=== PATIENT | female | born 1975 | race Caucasian/White ===

== ENCOUNTER 2022-06-07 11:00 | Outpatient (CLI) | payer OTHER, SELFPAY ==
[2022-06-07 19:19] LABS: Cholesterol 186 mg/dL (0-200); HDL Direct 57 mg/dL; Triglycerides 68 mg/dL (<150)
[2022-06-07 19:30] LABS: LDL Cholesterol Direct 81 mg/dL
[2022-06-07 21:45] LABS: Vitamin D 25 Hydroxy > 126.0 ng/mL
== END 2022-06-07 11:01 | disposition home or self-care (01) ==
LOC: ANHGOSHLAB 11:01
PROVIDERS: PCP Nurse Practitioner Family; Visit Provider Nurse Practitioner Family
DX: E78.5 Hyperlipidemia, unspecified (principal); E55.9 Vitamin D deficiency, unspecified
CPT/HCPCS: 36415; 80061; 82306

== ENCOUNTER 2023-06-09 08:34 | Outpatient (CLI) | payer OTHER, SELFPAY ==
[2023-06-09 18:25] LABS: Cholesterol 195 mg/dL (0-200); HDL Direct 58 mg/dL; Triglycerides 80 mg/dL (<150)
[2023-06-09 18:35] LABS: LDL Cholesterol Direct 96 mg/dL
[2023-06-13 13:52] LABS: Vitamin D 1,25 (OH)2 Total 51 pg/mL (18-72); Vitamin D2 1,25 (OH)2 <8 pg/mL; Vitamin D3 1,25 (OH)2 51 pg/mL
== END 2023-06-09 08:35 | disposition home or self-care (01) ==
LOC: ANHGOSHLAB 08:35
PROVIDERS: PCP Family Medicine; Visit Provider Nurse Practitioner Family
DX: Z00.00 Encounter for general adult medical examination without abnormal findings (principal); Z12.11 Encounter for screening for malignant neoplasm of colon; Z12.12 Encounter for screening for malignant neoplasm of rectum; E78.5 Hyperlipidemia, unspecified; E55.9 Vitamin D deficiency, unspecified
CPT/HCPCS: 36415; 80061; 82652; 84443

== ENCOUNTER 2024-06-07 11:06 | Outpatient (CLI) | payer OTHER, SELFPAY ==
[2024-06-07 19:56] LABS: Hemoglobin A1C 5.1 % (<5.7)
[2024-06-07 21:28] LABS: Cholesterol 187 mg/dL (0-200); HDL Direct 69 mg/dL; Triglycerides 69 mg/dL (<150)
[2024-06-07 21:43] LABS: LDL Cholesterol Direct 83 mg/dL
[2024-06-12 13:29] LABS: Vitamin D 1,25 (OH)2 Total 68 pg/mL (18-72); Vitamin D2 1,25 (OH)2 <8 pg/mL; Vitamin D3 1,25 (OH)2 68 pg/mL
== END 2024-06-07 11:07 | disposition home or self-care (01) ==
LOC: ANHGOSHLAB 11:07
PROVIDERS: PCP Family Medicine; Visit Provider Nurse Practitioner Family
DX: Z00.00 Encounter for general adult medical examination without abnormal findings (principal); D68.51 Activated protein C resistance; E55.9 Vitamin D deficiency, unspecified; E78.5 Hyperlipidemia, unspecified; F41.8 Other specified anxiety disorders; R73.03 Prediabetes
CPT/HCPCS: 36415; 80061; 82607; 82652; 83036

== ENCOUNTER 2024-08-31 07:42 | Outpatient (CLI) | payer OTHER, SELFPAY ==
--- NOTE | ~2024-08-31 | MM_ITS ---
EXAMINATION: MM screening jhon BI w pipo HISTORY: Screening TECHNIQUE: Craniocaudal and mediolateral oblique 3-D tomosynthesis images were obtained and synthetic 2-D images were generated. CAD analysis was submitted and interpreted. COMPARISON: 05/23/2019 BREAST PARENCHYMAL COMPOSITION: Dense: The breasts are heterogeneously dense, which may obscure small masses FINDINGS: There are developing bilateral breast asymmetries largely centered in the upper outer quadr ants. There are no suspicious calcifications. No definite architectural distortion. IMPRESSION: 1. Developing bilateral breast asymmetries. 2. Additional mammographic views and possible breast ultrasound are recommended. BI-RADS Category 0: Incomplete: Needs additional imaging evaluation. Reviewed, dictated and finalized at location B. OR SALES ENGINEER IMPRESSION: 1. Developing bilateral breast asymmetries. 2. Additional mammographic views and possible breast ultrasound are recommended . BI-RADS Category 0: Incomplete: Needs additional imaging evaluation.
== END 2024-08-31 07:43 | disposition home or self-care (01) ==
PROVIDERS: PCP Family Medicine; Visit Provider Obstetrics & Gynecology
DX: Z12.31 Encounter for screening mammogram for malignant neoplasm of breast (principal); N64.89 Other specified disorders of breast
CPT/HCPCS: 77063; 77067

== ENCOUNTER 2025-06-10 08:32 | Outpatient (CLI) | payer OTHER, SELFPAY ==
--- OUTSIDE RECORDS SUMMARY | 2025-06-10 08:48 | XMS_ITS | Clinical Summary ---
Author Organization [facility] [address] [facility] [place] [address] Care Team Providers Care Mercantile Reporter Name Role Phone Amberly Blank MD Unavailable [phone] Unknown, Notinfile Primary Care Provider Unavail able Allergies Active Allergy Reactions Criticality Noted Date Comments Codeine Metronidazole Rash Medium 11/09/2007 Propoxyphene Fatigue Low 01/24/2017 Propoxyphene N-Acetaminophen Rash Medium 015 Tetracyclines Itching Low 03/21/2023 Medications loratadine-pseud oephedrine (CLARITIN-D 12-hour) 5-120 mg tablet extended release 12 hr Take 1 tablet by mouth 2 (two) times a day 03/06/2015 Active docosahexaenoic acid-epa 120-180 mg capsule Take by mouth Active VITAMIN B COMPLEX ORAL Take by mouth Active ergocalciferol, vitamin D2, (VITAMIN D2 ORAL) Take by mouth Active ascorbic acid (VITAMIN C ORAL) Take 1,000 mg by mouth daily Active rivaroxaban (XARELTO) 20 mg tablet Take 1 tablet (20 mg total) by mouth daily 05/13/2024 Active sertraline (ZOLOFT) 50 mg tablet 1 tablet (50 mg total) 10/01/2024 Active semaglutide 1.7 mg/0.22 mL syringe Inject under the skin Active Hospital, Clinic, or Other Facility Administered Medication Ordered Dose Route Frequency Start Date End Date Status levonorgestreL (MIRENA) 20 mcg/24 hours (7 yrs) 52 mg IUDIndications:Preg jelani Contraception intrauterine Continuous (implanted device) 11/10/2021 7 Active Active Problems Problem Noted Date Diagnosed Date Endometriosis 08/03/2024 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 contractions 02/20/2015 Twin in third trimester 02/20/2015 Interstitial cystitis 12/21/2012 Encounters Date Type Department Care Team Description 04/24/2025 8:00 AM CDT Office Visit [facility] at [address] [address] Tia Holloway NP Irritation of left eye (Primary Dx); Body aches from Last 3 Months Surgical History Surgery Date Site/Laterality Comments SECTION, LOW TRANSVERSE 10/30/2014 - 10/29/2015 twins son Gregorio dtr Cande PELVIC LAPAROSCOPY 10/30/2003 - 10/29/2004 excision endometriosis/endometri chase WISDOM TOOTH EXTRACTION GYNECOLOGIC CRYOSURGERY 10/30/2003 - 10/29/2004 cervical cryo in 2003 Medical History Medical History Date Comments Factor V Leiden mutation Positiv e Factor V Leiden mutation 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) in addition to Factor V muta tion and prothrombin promoter mutation Prothrombin [id number] mutation Interstitial cystitis Depression Anticoagulated on Coumadin Anxiety Endometriosis Irritable bowel syndrome Family History Medical History Relation Name Comments Deep vein thrombosis Mother spinal cord tumor rare, no genetic component; '13 from this cancer Mother Thrombosis Mother's Sister from thrombosis Cancer Other 1 Reported Family History Of Cancer - mother,grandpa grandma (Added by TW Conv) Thyroid disease Other 2 Thyroid Diso rder - great grandma (Added by TW Conv) Obesity Other 3 Obesity - mothe rs sister (Added by TW Conv) Heart disease Other 4 Heart Disease - grandfather (Added by TW Conv) Breast cancer Neg Hx Colon cancer Neg Hx Ovarian cancer Neg Hx Relation Name Status Comments Mother Mother's Sister Other 1 Other 2 Other 3 Other 4 Social History Tobacco Use Types Packs/Day Years Used Date Smoking Tobacco: Never Passive Smoke Exposure: Never Smokeless Tobacco: Never Tobacco Cessation:Counseling Given: Not Answered Comments No Sex and Gender Information Value Date Recorded Sex Assigned at Not on file Legal Sex Female 6:48 AM POLICY DIRECTOR Gender Identity Not on file Sexual Orientation Not on file Obstetrics History Para Term AB IAB SAB Ectopic Multiple Livin g Live Births 1 1 1 1 2 2 Date Outcome GA Total Labor Labor/2nd/3rd Weight Sex Type Anes PTL Purvi A1 A5 Name Clin 015 34w 2d 1.701 kg (3 lb 12 oz) M CS-LT ranv Living Comments:Son Gregorio Tw in A 015 34w 2d 2.013 kg (4 lb 7 oz) F CS-LT ranv Living Comments:Dtr Cande Tw in B Last Filed Vital Signs Vital Sign Reading Time Taken Comments Blood Pressure 118/74 04/24/2025 8:03 AM CDT Pulse 87 04/24/2025 8:03 AM CDT Temperature 36.6 C (97.8 F) 04/24/2025 8:03 AM CDT Respiratory Rate 16 04/24/2025 8:03 AM CDT Oxygen Saturation 98% 04/24/2025 8:03 AM CDT Inhaled Oxygen Concentration - - Weight 59 kg (130 lb) 04/24/2025 8:03 AM CDT Height 152.4 cm (5') 12/23/2024 9:05 AM POLICY DIRECTOR Body Mass Index 25.39 12/23/2024 9:05 AM POLICY DIRECTOR Plan of Treatment Health Maintenance Due Date Last Done Comments Breast Cancer Screening-Mammogram 1977 Colon Cancer Screening-Colonoscopy 1977 Depression Screening 1977 Hepatitis C Screening 1977 Hepatitis B Screening 1995 Covid-19 Vaccine (2023- season) 2024 12/30/2020, 12/02/2020 DTaP/Tdap/Td Vaccine (3 - Td or Tdap) 02/28/2025 02/28/2015, 11/03/2010 Influenza Vaccine (#1) 2025 , 08/23/2020, 08/22/2020, Additional history exists Cervical Cancer Screening 12/23/20252024, 12/20/2023, 12/16/2022, Additional history exists Regular Well Visit/Exam 18-64 12/23/2025 12/23/2024, 12/20/2023, 12/16/2022, Additional history exists Pneumococcal vaccine <65 Aged Out No longer eligible based on patient's age to complete this topic Procedures Procedure Name Priority Date/Time Associated Diagnosis Comments THINPREP IMAGING PAP AND HPV MRNA E6/E7 REFLEX HPV 16,18/45 Routine 12/23/2024 9:54 AM POLICY DIRECTOR Routine gynecological examination from Last 3 Months or Most Recently Relevant to Health Maintenance Results * ThinPrep(R) Imaging Pap and HPV mRNA E6/E7 Reflex HPV 16,18/45 (12/23/2024 9:54 AM POLICY DIRECTOR) CLINICAL INFORMATION: [facility] Comment:None given LMP [facility] Comment:NONE GIVEN Previous Pap [facility] Comment:NONE GIVEN Prev. Bx [facility] Comment:NONE GIVEN SOURCE: [facility] Comment:None given Pap, specimen adequacy [facility] Comment: Satisfactory for evaluation. Endocervical/transformation zone component present. Age and/or menstrual status not provided HPV interp [facility] Comment: Cytology Results: Negative for intraepithelial lesion or malignancy. COMMENTS [facility] Comment: This Pap test has been evaluated with computer assisted technology. Donor Floor Technician [facility] Comment: MEF, CT(ASCP) CT screening location: [place] [address] [place] [address] Comment [facility] Comment: EXPLANATORY NOTE: The Pap is a screening test for cervical cancer. It is not a diagnostic test and is subject to false negative and false positive results. It is most reliable when a satisfactory sample, regularly obtained, is submitted with relevant clinical findings and history, and when the Pap result is evaluated along with historic and current clinical information. Human papillomavirus RNA, High Risk E6/E7 Not Detected Not Detected [facility] [employer] Comment: Methodology: Ethnology Teacher-Mediated Amplification This assay detects E6/E7 viral messenger RNA (mRNA) from 14 high-risk HPV types (16,18,31,33,35,39,45,51,52,56,58,59,66,68). Cervical sources are required for HPV testing. If a vaginal source from a patient who has had a total hysterectomy with removal of cervix was submitted, please contact the testing laboratory for alternative testing options. For additional information, please refer to http://education.Vixlo/faq/HSE989p8 (This link if provided for information/ educational purposes only.) Swab 12/23/2024 9:54 AM POLICY DIRECTOR 12/23/2024 11:23 PM POLICY DIRECTOR us Nakita Ambrocio DO LAB CYTOLOGY ORDERABLES Final Result Performing Organization Address City/State/[facility] Co de Phone Number [facility] [address] [place] [address] [facility] [address] [place] [address] from Last 3 Months or Most Recently Relevant to Health Maintenance Insurance [facility] Address: [place] [address] [facility] CHOICE PLUS [facility] H[facility]/PPO Address: [address] [place] [address] [facility]/PPO Address: [address] [place] [address] [facility] [address] CHOICE PLUS [facility] H[facility]/PPO Address: [address] [place] [address] Care Teams Mercantile Reporter Relationship Specialty Start Date End Date Unknown, Notinfile PCP - General 04/24/25 [place] [address] [place] [address] Employment Attorney Obstetrics and Gynecology 09/17/21
--- OUTSIDE RECORDS SUMMARY | 2025-06-10 08:48 | XMS_ITS | Encounter Summary ---
Author Organization [facility] Address [address] Wong: [place] [address] Care Team Providers Care Syrup Maker Cook Name Role Phone Ryan Singh MD Primary Care Provider Encounter Details Date Type Department Care Team (Latest Contact Info) Description 05/03/2007 Orders Only Saurabh Epstein DO [facility] [address] [address] Social History Tobacco Use Types Packs/Day Years Used Date Smoking Tobacco: Never Assessed Comments Unknown Sex and Gender Information Value Date Recorded Sex Assigned at Not on file Legal Sex Female 5:02 AM HAND SOLE SEWER Gender Identity Not on file Sexual Orientation Not on file documented as of this encounter Progress Notes * Saurabh Epstein DO - 03/19/2008 8:59 AM CDT NURSE NAME: Chanell Yanes L BLOOD PRESSURE: 110/62. Left Arm Sitting PULSE: 76. Right Radial, Regular TEMPERATURE: 99.2??f. Oral WEIGHT: 106lbs. ALLERGIES: No known drug allergies. TOBACCO USE: Patient does not currently use tobacco. CHIEF COMPLAINT Patient complains of cough, head congestion, chest congestion, earaches, runny nose. /mercy/est HISTORY: Last mon began with cough, progressed to chest tightness. Taking tylenol cold, didn't really seem to help. [place] better over the weekend. Monday started with cough again. Cheeks hurt, left ear hurts, tightness in the chest. + exposure to whooping cough last week, and this person just came back to work yesterday. Low grade temp today. Dry cough. Tired all the time since this started. ROS: GENERAL: No change in appetite, no chills, FEELS FATIGUED, no spontaneous sweats noted. ENT: See HISTORY OF PRESENT ILLNESS. CARDIAC: No palpitations, no chest pain. RESPIRATORY: See HISTORY OF PRESENT ILLNESS, no hemoptysis, no sputum noted. PAST MEDICAL HISTORY: MEDICAL: Allergies, interstitial cystitis, endometriosis. Sees Dr. Pfeiffer ENVIRONMENTAL ENGINEERING PROFESSOR. SURGICAL: 2 surgeries for endometriosis, 1 for cystitis. CURRENT MEDICATIONS: harley and zyrtec. SOCIAL HISTORY: TOBACCO USE: Has no significant smoking history. PHYSICAL EXAMINATION: CONSTITUTIONAL: GENERAL APPEARANCE: Healthy appearing patient in no distress. EYES: CONJUNCTIVAE/LIDS: Conjunctivae and lids appear normal. EARS, NOSE, MOUTH AND THROAT: EXTERNAL/EARS AND NOSE: Overall appearance normal with no scars, lesions or masses. EARS: No tympanic membrane retraction noted in either ear. NOSE (AND SINUS): TURBINATES RED BILATERALLY, TURBINATES SWOLLEN BILATERALLY. ORAL: Inspection of gums, lips, palate, and teeth normal. No scars, lesions, or masses. Oral mucosaunremarkable with non-inflamed posterior pharynx. NECK/THYROID: Trachea midline. No thyroid enlargement, tenderness, or mass. No supraclavicular or cervical adenopathy. RESPIRATORY: Clear to auscultation and percussion. Normal respiratory effort. CARDIOVASCULAR: CARDIAC: Regular rhythm. No murmurs, rubs, or gallops. ARTERIAL: No aortic bruits. ASSESSMENT/PLAN: 465.9-UPPER RESPIRATORY INFECTION ASSESSMENT: Because of symptomatic exposure to pertussis, will treat with a z- pack. Instructed thatcough can last six weeks after symptoms go away if this is indeed pertussis. Otherwise, symptomatictreatment as below. MEDICATIONS: ZITHROMAX ORAL TABLET 250 MG, take 2 today, then 1 q day x 4 more days, 6 Dispensed, status: NEW PRESCRIPTION, 05/03/2007. 786.2-COUGH ASSESSMENT: Tessalon during day, narcotic cough syrup during night. Instructed on proper use, pt understands. MEDICATIONS: HYDROCODONE-GUAIFENESIN ORAL LIQUID 5-100 MG/5ML, take 1 tsp q 4-6h prn cough Disp 120cc, 1 Dispensed, status: NEW PRESCRIPTION, 05/03/2007. TESSALON ORAL CAPSULE CONVENTIONAL 200 MG, 1 Three Times A Day, As Needed, 30 Dispensed, 1 Fills, status: NEW PRESCRIPTION, 05/03/2007. 477.9-RHINITIS ALLERGIC UNSPECIFIED ASSESSMENT: Does have hx of allergies, which could be contributing, will refill flonase and zyrtec for her. MEDICATIONS: FLONASE NASAL SUSPENSION 50 MCG/ACT, 2 SPRAYS EACH NOSTIL QD, 1 Dispensed, 3 Fills, status: NEW PRESCRIPTION, 05/03/2007. ZYRTEC ORAL TABLET 10 MG, 1 Every Day, 30 Dispensed, 5 Fills, status: NEW PRESCRIPTION, 05/03/2007. RETURN VISIT: Patient instructed to call in 1 week if not improving. otherwise soon for HMV. 05/06/07 12:18 p Electronically signed by Saurabh Epstein DO. Electronically Signed by: Santino Jain MD on April documented in this encounter Plan of Treatment Upcoming Encounters Date Type Department Care Team (Late st Contact Info) Description 11/19/2025 8:15 AM HAND SOLE SEWER Office Visit [facility] Oncology and Hematology [facility] [address] [place] [address] Pao Hartley MD [address] [place] [address] documented as of this encounter Visit Diagnoses Not on filedocumented in this encounter Care Teams Syrup Maker Cook Relationship Specialty Start Date End Date Ryan Singh MD [address] [place] [address] PCP - General Family Practice 04/26/22 documented as of this encounter
--- OUTSIDE RECORDS SUMMARY | 2025-06-10 08:48 | XMS_ITS | Encounter Summary ---
Author Organization [facility] Address [address] [place] [address] Care Team Providers Care Implementation Services Analyst Name Role Phone Ryan Singh MD Primary Care Provider Encounter Details Date Type Department Care Team (Late st Contact Info) Description 11/08/2007 Orders Only [facility] Family Medicine [facility] [address] [place] [address] Jacquelyn Wallis MD [address] [place] [address] Social History Tobacco Use Types Packs/Day Years Used Date Smoking Tobacco: Never Assessed Comments Unknown Sex and Gender Information Value Date Recorded Sex Assigned at Not on file Legal Sex Female 5:02 AM TESTER EQUIPMENT Gender Identity Not on file Sexual Orientation Not on file documented as of this encounter Progress Notes * Jacquelyn Wallis MD - 03/12/2008 5:41 PM CDT NURSE NAME: Thelma KristinaWayne WEIGHT: 102lbs. BLOOD PRESSURE: 120/84. Right Arm Sitting PULSE: 104. Right Radial, Regular TEMPERATURE: 99.2??f. Oral ALLERGIES: Allergies are as listed. TOBACCO USE: Patient does not currently use tobacco. CHIEF COMPLAINT Patient complains of painful urination, frequent urination.bloodiness and back pain.est.[facility] HISTORY: 32 yo wf here for possible uti - increased frequency, dark urine, dysuria, difficulty starting flow. Now with suprapubic pressure and back pain. Taking urastat and flagyl, and elmiron. Now with with rash starting this am. + nausea. No vaginal discharge. No bm changes. Normal appetite. Only other med - harley. SH: Nonsmoker PMH: interstitial cystitis - treated by urologist in tx. anxiety. allergic rhinitis CURRENT ALLERGY LIST: CODEINE DARVOCET-N 100 FLAGYL PHYSICAL EXAMINATION: CONSTITUTIONAL: GENERAL APPEARANCE: Healthy appearing patient in no distress. EYES: CONJUNCTIVAE/LIDS: Conjunctivae and lids appear normal. RESPIRATORY: Clear to auscultation and percussion. Normal respiratory effort. CARDIOVASCULAR: CARDIAC: Regular rhythm. No murmurs, rubs, or gallops. GASTROINTESTINAL: ABDOMEN: No suprapubic tenderness, normal bowel sounds, no rigidity is present, No CVA tenderness. SKIN: RASH/LESION #1 LOCATION: Left anterior forearm, right forearm. CHARACTERISTICS: The lesion is erythematous. The rash is maculopapular. The lesion border is asymmetrical. The lesion surface is flat. There are multiple lesions. ASSESSMENT/PLAN: 599.0-URINARY TRACT INFECTION - Will not do ua as patient has taken urostat. Will treat with septraand send urine for culture. No cva tenderness. no fever. MEDICATIONS: SEPTRA DS ORAL TABLET 800-160 MG, one tab po bid X 3 days, 6 Dispensed, 3 Duration/Days Supply, status: NEW PRESCRIPTION, 11/08/2007. LAB ORDERS: Order number: [id number] Test Ordered: CULTURE, URINE 8970 782.1-RASH - contact dermatitis vs drug reaction. Given the timing with starting the flagyl, will note flagyl on allergy list. HAve advised patient to tell other physicians that she had a possible rash to flagyl. RETURN VISIT: call if no improvement in 2 days or if symptoms worsen. 11/09/07 01:24 p Electronically signed by Jacquelyn Wallis MD. Electronically Signed by: Khushboo Newberry MD on , November 29, 2007 documented in this encounter Plan of Treatment Upcoming Encounters Date Type Department Care Team (Late st Contact Info) Description 11/19/2025 8:15 AM TESTER EQUIPMENT [facility] [address] [place] [address] Pao Hartley MD [address] [place] [address] documented as of this encounter Visit Diagnoses Not on filedocumented in this encounter Care Teams Implementation Services Analyst Relationship Specialty Start Date End Date Ryan Singh MD [address] [place] [address] PCP - General Family Practice 04/26/22 documented as of this encounter
--- OUTSIDE RECORDS SUMMARY | 2025-06-10 08:48 | XMS_ITS | Encounter Summary ---
Author Organization [facility] Address [address] Attn: Epic Prelude ADT [place] [address] Care Team Providers Care Machine Adjuster Leader Case Trim Name Role Phone Ryan Singh MD Primary Care Provider Encounter Details Date Type Department Care Team (Latest Contact Info) Description 06/28/2007 Orders Only Social History Tobacco Use Types Packs/Day Years Used Date Smoking Tobacco: Never Assessed Comments Unknown Sex and Gender Information Value Date Recorded Sex Assigned at Not on file Legal Sex Female 5:02 AM SOLID TIRE FINISHER Gender Identity Not on file Sexual Orientation Not on file documented as of this encounter Plan of Treatment Upcoming Encounters Date Type Department Care Team (Late st Contact Info) Description 11/19/2025 8:15 AM SOLID TIRE FINISHER Office Visit [facility] Oncology and Hematology [facility] [address] [place] [address] Pao Hartley MD [address] [place] [address] documented as of this encounter Visit Diagnoses Not on filedocumented in this encounter Care Teams Machine Adjuster Leader Case Trim Relationship Specialty Start Date End Date Ryan Singh MD [address] [place] [address] PCP - General Family Practice 04/26/22 documented as of this encounter
--- OUTSIDE RECORDS SUMMARY | 2025-06-10 08:48 | XMS_ITS | Encounter Summary ---
Author Organization [facility] Address [address] [place] [address] Care Team Providers Care Donor Recruiter Name Role Phone Ryan Singh MD Primary Care Provider Encounter Details Date Type Department Care Team (Late st Contact Info) Description 11/08/2007 Outpatient Historical [facility] Family Medicine [facility] [address] [address] Jacquelyn Wallis MD [address] [place] [address] Social History Tobacco Use Types Packs/Day Years Used Date Smoking Tobacco: Never Assessed Comments Unknown Sex and Gender Information Value Date Recorded Sex Assigned at Not on file Legal Sex Female 5:02 AM ACCOUNT MANAGEMENT ASSISTANT Gender Identity Not on file Sexual Orientation Not on file documented as of this encounter Last Filed Vital Signs Vital Sign Reading Time Taken Comments Blood Pressure 120/84 11/08/2007 2:15 PM ACCOUNT MANAGEMENT ASSISTANT Pulse 104 11/08/2007 2:15 PM ACCOUNT MANAGEMENT ASSISTANT Temperature 37.3 C (99.2 F) 11/08/2007 2:15 PM ACCOUNT MANAGEMENT ASSISTANT Respiratory Rate - - Oxygen Saturation - - Inhaled Oxygen Concentration - - Weight 46.3 kg (102 lb) 11/08/2007 2:15 PM ACCOUNT MANAGEMENT ASSISTANT Height - - Body Mass Index - - documented in this encounter Plan of Treatment Upcoming Encounters Date Type Department Care Team (Late st Contact Info) Description 11/19/2025 8:15 AM ACCOUNT MANAGEMENT ASSISTANT Office Visit [facility] Oncology and Hematology [facility] [address] [place] [address] Pao Hartley MD [address] [place] [address] documented as of this encounter Visit Diagnoses Not on filedocumented in this encounter Care Teams Donor Recruiter Relationship Specialty Start Date End Date Ryan Singh MD [address] [place] [address] PCP - General Family Practice 04/26/22 documented as of this encounter
--- OUTSIDE RECORDS SUMMARY | 2025-06-10 08:48 | XMS_ITS | Encounter Summary ---
Author Organization [facility] Address [address] [place] [address] Care Team Providers Care Dealer Sales Rep Name Role Phone Ryan Singh MD Primary Care Provider Encounter Details Date Type Department Care Team (Late Contact Info) Description 06/28/2007 Outpatient Historical [facility] Family Medicine [address] [facility] [address] [place] [address] [place] [address] [place] [address] Social History Tobacco Use Types Packs/Day Years Used Date Smoking Tobacco: Never Assessed Comments Unknown Sex and Gender Information Value Date Recorded Sex Assigned at Not on file Legal Sex Female 5:02 AM LEAD SOFTWARE TEST ENGINEER Gender Identity Not on file Sexual Orientation Not on file documented as of this encounter Last Filed Vital Signs Vital Sign Reading Time Taken Comments Blood Pressure 108/60 06/28/2007 11:30 AM CDT Pulse 72 06/28/2007 11:30 AM CDT Temperature - - Respiratory Rate - - Oxygen Saturation - - Inhaled Oxygen Concentration - - Weight 46.3 kg (102 lb) 06/28/2007 11:30 AM CDT Height - - Body Mass Index - - documented in this encounter Plan of Treatment Upcoming Encounters Date Type Department Care Team (Late st Contact Info) Description 11/19/2025 8:15 AM LEAD SOFTWARE TEST ENGINEER Office Visit [facility] Oncology and Hematology [facility] [place] [address] [facility] [address] [place] [address] Pao Hartley MD [address] [place] [address] documented as of this encounter Visit Diagnoses Not on filedocumented in this encounter Care Teams Dealer Sales Rep Relationship Specialty Start Date End Date Ryan Singh MD [address] [place] [address] PCP - General Family Practice 04/26/22 documented as of this encounter
--- OUTSIDE RECORDS SUMMARY | 2025-06-10 08:48 | XMS_ITS | Encounter Summary ---
Author Organization [facility] Address [address] [place] [address] Care Team Providers Care Medical Art Therapist Name Role Phone Ryan Singh MD Primary Care Provider Encounter Details Date Type Department Care Team (Latest Contact Info) Description 06/28/2007 Outpatient Historical [facility] Family Medicine [facility] [address] [facility] [address] [place] [address] [place] [address] [place] [address] Herpes Zoster without Mention of Complication (Primary Dx) Social History Tobacco Use Types Packs/Day Years Used Date Smoking Tobacco: Never Assessed Comments Unknown Sex and Gender Information Value Date Recorded Sex Assigned at Not on file Legal Sex Female 5:02 AM DTP OPERATOR Gender Identity Not on file Sexual Orientation Not on file documented as of this encounter Plan of Treatment Upcoming Encounters Date Type Department Care Team (Late st Contact Info) Description 11/19/2025 8:15 AM DTP OPERATOR Office Visit [facility] Oncology and Hematology [facility] [address] [facility] [address] [place] [address] Pao Hartley MD [address] [facility] [address] [place] [address] documented as of this encounter Procedures Procedure Name Priority Date/Time Associated Diagnosis Comments HIV DETECTION W/REFLX CONFIRMATION Routine 06/28/2007 12:37 PM CDT documented in this encounter Results * HIV ANTIBODY W/REFLX CONFIRMATION (06/28/2007 12:37 PM CDT) HIV-1 AND 2 ABS NON-REACTI VE NON-REACT ALONSO INTERFACE SYSTEM Comment: Effective April 02, 2007, HIV 1/2 Antibody Screen with Reflexed Confirmati on has replaced HIV-1 Antibody Screen. HIV-1 Antibody Screen is no longer offered due to lack of available kits from the hand coper. A NON-REACTIVE HIV 1/2 ANTIBODY RESULT DOES NOT EXCLUDE HIV INFECTION SINCE THE TIME FRAME FOR SEROCONVERSION IS VARIABLE. IF ACUTE HIV INFECTION IS SUSPECTED, ANTIBODY RETESTING AND NUCLEIC ACID AMPLIFICATION (HIV DNA/RNA) TESTING IS RECOMMENDED. Lab test performed by: [facility] [id number] [place] [address] FOUZIA HARRIS MD 06/28/2007 12:3 7 PM CDT us Cecelia Hardwick MD CHEMISTRY ORDERABLES Edite d INTERFACE SYSTEM Refer to clinic/hospital department documented in this encounter Visit Diagnoses Diagnosis Herpes zoster without mention of complication- Primary documented in this encounter Care Teams Medical Art Therapist Relationship Specialty Start Date End Date Ryan Singh MD [address] [place] [phone] PCP - General Family Practice 04/26/22 documented as of this encounter
--- OUTSIDE RECORDS SUMMARY | 2025-06-10 08:48 | XMS_ITS | Clinical Summary ---
Author Organization [facility] Address [address] [place] [address] Care Team Providers Care Inventory Associate And Driver Name Role Phone Florentin Campos MD Primary Care Provider [phone] Source Comments [facility],non-owned Affiliates and Associated Physician Practices is amultiple site organization consisting of ambulatory clinics and hospital sitesin [place], [place], [place] and [place]. This disclosure is being madepursuant to the Care Everywhere program and may not contain all information available regarding this patient. Last updated 18.[facility] Allergies Active Allergy Reactions Criticality Noted Date Comments Codeine 01/24/2017 Propoxyphene N-Apap 01/24/2017 Metronidazole Rash Medium 01/24/2017 Medications * Be aware that medications may not be up to date on this document. Alwaysverify current medications with the patient. WARFARIN SODIUM PO Take 9 mg by mouth Active Loratadine-Pseu doephedrine (CLARITIN-D 12 HOUR PO) Active Sertraline HCl (ZOLOFT PO) Active Taylor-3 Fatty Acids (FISH OIL) 1000 MG capsule Active VITAMIN D, CHOLECALCIFEROL , PO Active B Complex Vitamins (VITAMIN B COMPLEX PO) Active levonorgestrel (MIRENA, 52 MG,) 20 MCG/24HR IUD 1 device by Intrauterine route as directed Active Family History Medical History Relation Name Comments Other Father Motor vehicle a ccident Cancer - Other Mother Spinal, Brain Relation Name Status Comments Father Mother Social History Tobacco Use Types Packs/Day Years Used Date Smoking Tobacco: Never Smokeless Tobacco: Never Tobacco Cessation:Counseling Given: Yes Comments No Sex and Gender Information Value Date Recorded Sex Assigned at Not on file Legal Sex Female 3:26 PM CDT Gender Identity Not on file Sexual Orientation Not on file Last Filed Vital Signs Vital Sign Reading Time Taken Comments Blood Pressure 116/70 04/14/2021 9:11 AM CDT Pulse 83 04/14/2021 9:11 AM CDT Temperature 36.8 C (98.3 F) 04/14/2021 9:11 AM CDT Respiratory Rate 18 04/14/2021 9:11 AM CDT Oxygen Saturation 98% 04/14/2021 9:11 AM CDT Inhaled Oxygen Concentration - - Weight 54.4 kg (120 lb) 09/04/2019 12:[address] SCAN TECH Height 152.4 cm (5') 09/04/2019 12:[address] SCAN TECH Body Mass Index 23.44 09/04/2019 12:[address] SCAN TECH Plan of Treatment Health Maintenance Due Date Last Done Comments COLOGUARD (AGES 45-75) - COLON CA SCREENING 1977 COLON MONITORING 1977 COLONOSCOPY - COLON CA SCREENING 1977 CT COLONOGRAPHY - COLON CA SCREENING 1977 Colorectal Cancer Screening 1977 FIT - COLON CA SCREENING 1977 FLEX SIG - COLON CA SCREENING 1977 LIPID TESTING 1977 MAMMOGRAM 1977 HIV SCREENING 1992 HEPATITIS C SCREENING 09/14/1995 DTAP/TDAP/TD VACCINES (1 - Tdap) 1996 HEPATITIS B VACCINE (1 of 3 - 19+ 3-dose series) 1996 COVID-19 VACCINE ( - 2023- season) 2024 12/30/2020, 12/02/2020 DEPRESSION SCREENING 10/30/2024 INFLUENZA VACCINE (#1) 2025 , 08/22/2020, 07/11/2018, Additional history exists ZOSTER VACCINE (1 of 2) 2027 HIB VACCINE Aged Out No longer eligi ble based on patient's age to complete this topic HPV VACCINE Aged Out No longer eligi ble based on patient's age to complete this topic MENINGOCOCCAL (Group B) VACCINE SHARED DECISION-MAKING Aged Out No longer eligible based on patient's age to complete this topic MENINGOCOCCAL GROUPS A/C/Y/W VACCINE Aged Out No longer eligible based on patient's age to complete this topic PNEUMOCOCCAL VACCINE Aged Out No long er eligible based on patient's age to complete this topic Insurance [facility] Care Teams Inventory Associate And Driver Relationship Specialty Start Date End Date Florentin Campos MD [address] [place] [address] PCP - General Family Medicine 05/26/19
--- OUTSIDE RECORDS SUMMARY | 2025-06-10 08:48 | XMS_ITS | Encounter Summary ---
Author Organization [facility] Address [address] [place] [address] Care Team Providers Care Joint Creaser Name Role Phone Ryan Singh MD Primary Care Provider Encounter Details Date Type Department Care Team (Latest Contact Info) Description 11/08/2007 Outpatient Historical [facility] Family Medicine [facility] [address] [facility] [address] [place] [address] Khushboo Newberry MD NO ADDRESS ON FILE Urinary Tract Infection, Site not Specified Social History Tobacco Use Types Packs/Day Years Used Date Smoking Tobacco: Never Assessed Comments Unknown Sex and Gender Information Value Date Recorded Sex Assigned at Not on file Legal Sex Female 5:02 AM DIRECTOR CORPORATE Gender Identity Not on file Sexual Orientation Not on file documented as of this encounter Plan of Treatment Upcoming Encounters Date Type Department Care Team (Late st Contact Info) Description 11/19/2025 8:15 AM DIRECTOR CORPORATE Office Visit [facility] Oncology and Hematology [facility] [address] [place] [address] Pao Hartley MD [address] [place] [address] documented as of this encounter Visit Diagnoses Diagnosis Urinary tract infection, site not specified documented in this encounter Care Teams Joint Creaser Relationship Specialty Start Date End Date Ryan Singh MD [address] [place] [address] PCP - General Family Practice 04/26/22 documented as of this encounter
--- OUTSIDE RECORDS SUMMARY | 2025-06-10 08:48 | XMS_ITS | Encounter Summary ---
Author Organization [facility] Address [address] [place] [address] Care Team Providers Care Electrician Supervisor Substation Name Role Phone Ryan Singh MD Primary Care Provider Encounter Details Date Type Department Care Team (Late Contact Info) Description 05/03/2007 Outpatient Historical [facility] [address] [place] [address] [place] [address] [address] [place] [address] Social History Tobacco Use Types Packs/Day Years Used Date Smoking Tobacco: Never Assessed Comments Unknown Sex and Gender Information Value Date Recorded Sex Assigned at Not on file Legal Sex Female 5:02 AM SENIOR RECEPTIONIST Gender Identity Not on file Sexual Orientation Not on file documented as of this encounter Last Filed Vital Signs Vital Sign Reading Time Taken Comments Blood Pressure 110/62 05/03/2007 4:10 PM CDT Pulse 76 05/03/2007 4:10 PM CDT Temperature 37.3 C (99.2 F) 05/03/2007 4:10 PM CDT Respiratory Rate - - Oxygen Saturation - - Inhaled Oxygen Concentration - - Weight 48.1 kg (106 lb) 05/03/2007 4:10 PM CDT Height - - Body Mass Index - - documented in this encounter Plan of Treatment Upcoming Encounters Date Type Department Care Team (Late st Contact Info) Description 11/19/2025 8:15 AM SENIOR RECEPTIONIST [facility] [address] [place] [address] Pao Hartley MD [address] [place] [address] documented as of this encounter Visit Diagnoses Not on filedocumented in this encounter Care Teams Electrician Supervisor Substation Relationship Specialty Start Date End Date Ryan Singh MD [address] [place] [phone] PCP - General Family Practice 04/26/22 documented as of this encounter
--- OUTSIDE RECORDS SUMMARY | 2025-06-10 08:48 | XMS_ITS | Encounter Summary ---
Author Organization [facility] Address [address] [place] [address] Care Team Providers Care Production Expert Name Role Phone Ryan Singh MD Primary Care Provider Encounter Details Date Type Department Care Team (Late Contact Info) Description 09/24/2007 Outpatient Historical [facility] Family Medicine [facility] [address] [facility] [address] [place] [address] [place] [address] [place] [address] Social History Tobacco Use Types Packs/Day Years Used Date Smoking Tobacco: Never Assessed Comments Unknown Sex and Gender Information Value Date Recorded Sex Assigned at Not on file Legal Sex Female 5:02 AM HYDRAULIC AUTO JACK MECHANIC Gender Identity Not on file Sexual Orientation Not on file documented as of this encounter Last Filed Vital Signs Vital Sign Reading Time Taken Comments Blood Pressure 102/68 09/24/2007 11:00 AM HYDRAULIC AUTO JACK MECHANIC Pulse 84 09/24/2007 11:00 AM HYDRAULIC AUTO JACK MECHANIC Temperature - - Respiratory Rate - - Oxygen Saturation - - Inhaled Oxygen Concentration - - Weight 46 kg (101 lb 8 oz) 09/24/2007 11:[address] Height - - Body Mass Index - - documented in this encounter Plan of Treatment Upcoming Encounters Date Type Department Care Team (Late st Contact Info) Description 11/19/2025 8:15 AM HYDRAULIC AUTO JACK MECHANIC Office Visit [facility] Oncology and Hematology [facility] [place] [address] [place] [address] Pao Hartley MD [address] [place] [address] documented as of this encounter Visit Diagnoses Not on filedocumented in this encounter Care Teams Production Expert Relationship Specialty Start Date End Date Ryan Singh MD [address] [place] [address] PCP - General Family Practice 04/26/22 documented as of this encounter
--- OUTSIDE RECORDS SUMMARY | 2025-06-10 08:48 | XMS_ITS | Clinical Summary ---
Author Organization [facility] Address [address] [place] [address] Care Team Providers Care Ad Writer Name Role Phone Ryan Singh MD Primary Care Provider Allergies Active Allergy Reactions Criticality Noted Date Comments Codeine Rash Low 06/28/2007 Metronidazole Rash Low 11/09/2007 Propoxyphene N-Acetaminophen Rash,Itching Low 06/28 Medications OMEGA-3 FATTY ACIDS (FISH OIL ORAL) Take 1 Cap by mouth 2 times daily . Active VITAMIN B COMPLEX ORAL Take by mouth. Ac tive ascorbic acid (VITAMIN C) 1,000 mg Tablet, Chewable Take 1,000 mg by mouth daily. Active loratadine-ps eudoephedrine (CLARITIN-D 12 HOUR) 5-120 mg Extended Release 12 hour tablet Take 1 Tab by mouth 2 times daily. 60 Tab 2 03/06/20 15 Active multivitamin (DAILY-JARRETT) tablet Take 1 Tablet by mouth daily. Active CALCIUM CARBONATE-VIT SHI D3 ORAL Take by mouth. Ac tive sertraline (ZOLOFT) 50 mg tablet Take 50 mg by mouth daily. Active semaglutide (OZEMPIC) 2 mg/dose (8 mg/3 mL) Pen Injector Inject by subcutaneous injection. Active rivaroxaban (Xarelto) 20 mg Tablet Take 1 Tablet (20 mg) by mouth daily with supper. 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 PLTCS 5/13 03/11/2015 contractions 02/20/2015 PCS 03/11, twins, factor V, p lasminogen activator inhibitor, prothrombin, lovenox 40 bid, cbc in am 02/20/2015 SHANNA, dc home 01/10/2015 Interstitial cystitis 12/21/2012 Endometriosis Resolved Problems Problem Noted Date Diagnosed Date Resolved Date Urinary tract infection, site not specified 11/08/2007 03/15/2010 Rash and other nonspecific skin eruption 11/08/2007 03/15/2010 Anxiety state, unspecified 09/24/2007 0 12/21/2012 Herpes zoster without mention of complication 06/28/20 07 05/29/2013 Acute upper respiratory infe ctions of unspecified site 05/03/2007 03/15/2010 Cough 05/03/2007 03/15/2010 Allergic rhinitis, cause unspecified 05/03/2007 03/15/2010 Encounters Date Type Department Care Team Description 06/03/2025 External Device Data STL ABSTRACTION Provider, Abstract 05/19/2025 11:00 AM CDT Office Visit [facility] [address] [place] [address] Pao Hartley MD Thrombophilia (Primary Dx); MTHFR (methylene THF reductase) deficiency and homocystinuria 05/19/2025 10:18 AM CDT - 05/19/2025 11:59 PM CDT Hospital Encounter [facility] [address], [address] [place] [phone] Pao Hartley MD Discharge Disposition: Home or Self Care 05/14/2025 External Device Data STL ABSTRACTION Provider, Abstract 05/13/2025 External Device Data STL ABSTRACTION Provider, Abstract 05/05/2025 Orders Only [facility] [address] [place] [address] Pao Hartley MD Thrombophilia; MTHFR (methylene THF reductase) deficiency and homocystinuria 04/15/2025 External Device Data STL ABSTRACTION Provider, Abstract 03/20/2025 External Device Data STL ABSTRACTION Provider, Abstract 03/19/2025 External Device Data STL ABSTRACTION Provider, Abstract 03/18/2025 External Device Data STL ABSTRACTION Provider, Abstract from Last 3 Months Immunizations Immunization Administration Dates Next Due (ADACEL/BOOSTRIX)(10 YR UP) TDAP VACCINE, 0.5ML, IM 02/28/2015,11/03/2010 Influenza Seasonal Unspecifi ed Formulation IM 08/22/2020,09/30/2016,06/26/2014 Skin Test TB 06/06/2017, 5,05/22/2013,2010 Family History Medical History Relation Name Comments Hypertension Father Other Father snowmobile acci dent Cancer Maternal Grandfather esophag eal Other Maternal Grandfather blood c lot Healthy Maternal Grandmother Cancer Mother spinal cancer. Heart Disease Paternal Grandfather Other Paternal Grandfather dementi a Healthy Paternal Grandmother Relation Name Status Comments Father Maternal Grandfather Maternal Grandmother Alive Mother Other Paternal Grandfather Paternal Grandmother Alive Social History Tobacco Use Types Packs/Day Years Used Date Smoking Tobacco: Never Smokeless Tobacco: Never Tobacco Cessation:Counseling Given: Not Answered Alcohol Use Standard Drinks/Week Comments No 1.7 (1 standard drink = 0.6 oz p ure alcohol) Comments No Sex and Gender Information Value Date Recorded Sex Assigned at Not on file Legal Sex Female 5:02 AM SENIOR ASSISTANT MANAGER Gender Identity Not on file Sexual Orientation Not on file Occupation Industry Job Start Date Job End Date Not on file Not on file Not on file Not on file Last Filed Vital Signs Vital Sign Reading Time Taken Comments Blood Pressure 124/76 05/19/2025 10:47 AM CDT Pulse 89 05/19/2025 10:47 AM CDT Temperature 36.3 C (97.4 F) 05/19/2025 10:47 AM CDT Respiratory Rate 18 05/19/2025 10:47 AM CDT Oxygen Saturation 98% 05/19/2025 10:47 AM CDT Inhaled Oxygen Concentration - - Weight 58.2 kg (128 lb 4.8 oz) 05/19/2025 10:47 AM CDT Height 152.4 cm (5') 05/19/2025 10:47 AM CDT Body Mass Index 25.06 05/19/2025 10:47 AM CDT Plan of Treatment Upcoming Encounters Date Type Department Care Team (Late st Contact Info) Description 11/19/2025 8:15 AM SENIOR ASSISTANT MANAGER Office Visit [facility] On[facility] and Hematology [facility] [address] [place] [address] Pao Hartley MD [address] [place] [address] Health Maintenance Due Date Last Done Comments HEPATITIS B VACCINES (1 of 3 - 19+ 3-dose series) 1996 HPV/Cotest (21-29) 1998 HPV/Cotest (30-65) 2007 BREAST CANCER SCREENING 2017 CERVICAL CANCER SCREENING 05/11/2019 PAP SMEAR 05/11/2019 05/11/2016 (Prev iously completed), 02/13/2013 Pre-Diabetes and Diabetes Screening 02/10/202002/09 COLORECTAL SCREENING 2022 Colorectal Cancer Screening 2022 FIT-DNA Q 3 years 2022 FIT/FOBT Q 1 year 2022 Flex Sig/CT Colonography Q 5 years 2022 DTAP/TDAP/TD VACCINES (3 - T d or Tdap) 02/28/2025 02/28/2015, 11/03/2010 INFLUENZA VACCINE (#1) 2025 0, 09/30/2016, 06/26/2014 Medical Devices Implanted Type Area Accounts Receivable Executive Device Identifier Shelf Expiration Date Model / Serial / Lot Barrier Seprafilm 5x6in 4301-02 - [id number] Implanted:Qt y: 1 on 03/11/2015 by Amberly Blank MD at [facility] Adhesion Barrier N/A: Uterus [employer] [id number] 04/28/2017 [id number] / / [id number] Procedures Procedure Name Priority Date/Time Associated Diagnosis Comments COMPREHENSIVE METABOLIC PANEL Stat 05/19/2025 10:33 AM CDT Thrombophilia MTHFR (methylene THF reductase) deficiency and homocystinuria CBC WITH DIFFERENTIAL Stat 05/19/2025 10:33 AM CDT Thrombophilia MTHFR (methylene THF reductase) deficiency and homocystinuria HEMOGLOBIN A1C Routine 02/09/2017 10:57 AM CDT Screening for diabetes mellitus from Last 3 Months or Most Recently Relevant to Health Maintenance Results * (ABNORMAL) CBC WITH DIFFERENTIAL (05/19/2025 10:33 AM CDT) WBC 7.7 4.0 - 9.8 K/uL 05/19/2025 10:49 AM CDT [facility] RBC 4.71 3.90 - 4.90 M/uL 05/19/2025 10:49 AM CDT [facility] HEMOGLOBIN 14.0 11.8 - 14.8 g/dL 05/19/2025 10:49 AM CDT [facility] HEMATOCRIT 39.5 35.5 - 44.0 % 05/19/2025 10:49 AM CDT [facility] MCV 83.9 82.0 - 99.0 fL 05/19/2025 10:49 AM CDT [facility] MCH 29.7 27.2 - 32.6 pg 05/19/2025 10:49 AM CDT [facility] MCHC 35.4 31.5 - 35.5 g/dL 05/19/2025 10:49 AM CDT [facility] RDW 12.6 11.5 - 14.5 % 05/19/2025 10:49 AM CDT [facility] RDW-STDEV 38.3 37.1 - 48.7 fL 05/19/2025 10:49 AM CDT [facility] PLATELETS 315 140 - 350 K/uL 05/19/2025 10:49 AM CDT [facility] MPV 9.2(L) 9.3 - 12.4 fL 05/19/2025 10:49 AM CDT [facility] NEUTROPHILS 53 % 05/19/2025 10:49 AM CDT [facility] LYMPHOCYTES 35 % 05/19/2025 10:49 AM CDT [facility] MONOCYTES 7 % 05/19/2025 10:49 AM CDT [facility] EOSINOPHILS 3 % 05/19/2025 10:49 AM CDT [facility] BASOPHILS 1 % 05/19/2025 10:49 AM CDT [facility] IMMATURE GRANULOCYTES 0 % 05/19/2025 10:49 AM CDT [facility] NEUTROPHIL ABSOLUTE 4.08 1.90 - 7.00 K/uL 05/19/2025 10:49 AM CDT [facility] LYMPHOCYTE ABSOLUTE 2.70 0.70 - 4.50 K/uL 05/19/2025 10:49 AM CDT [facility] MONOCYTE ABSOLUTE 0.57 0.10 - 1.30 K/uL 05/19/2025 10:49 AM CDT [facility] EOSINOPHIL ABSOLUTE 0.26 0.00 - 0.70 K/uL 05/19/2025 10:49 AM CDT [facility] BASOPHILS ABSOLUTE 0.09 0.00 - 0.20 K/uL 05/19/2025 10:49 AM CDT [facility] IMMATURE GRANULOCYTES ABSOLUTE 0.02 0.00 - 0.03 K/uL 05/19/2025 10:49 AM CDT [facility] Blood Venipuncture / Unknown 05/19/2025 10:33 AM CDT 05/19/2025 10:46 AM CDT Pao Hartley MD HEMATOLOGY ORDERABLES Final Res ult [facility] CLIA# [id number] [address] [facility] [address] [place] [address] * COMPREHENSIVE METABOLIC PANEL (05/19/2025 10:33 AM CDT) [facility] SODIUM 137 136 - 145 mmol/L 05/19/2025 11:12 AM T [facility] POTASSIUM 4.3 3.5 - 5.0 mmol/L 05/19/2025 11:12 AM T [facility] CHLORIDE 101 98 - 107 mmol/L 05/19/2025 11:12 AM T [facility] CO2 26 22 - 29 mmol/L 05/19/2025 11:12 AM T [facility] CALCIUM 9.5 8.6 - 10.2 mg/dL 05/19/2025 11:12 AM T [facility] BUN 16 6 - 20 mg/dL 05/19/2025 11:12 AM T [facility] CREATININE 0.66 0.51 - 0.95 mg/dL 05/19/2025 11:12 AM T [facility] GLUCOSE 89 74 - 99 mg/dL 05/19/2025 11:12 AM T [facility] TOTAL PROTEIN 7.2 6.7 - 8.6 g/dL 05/19/2025 11:12 AM [facility] ALBUMIN 4.4 3.5 - 5.2 g/dL 05/19/2025 11:12 AM T [facility] BILIRUBIN TOTAL 0.4 0.0 - 1.2 mg/dL 05/19/2025 11:12 AM T [facility] ALKALINE PHOSPHATASE 98 35 - 104 U/L 05/19/2025 11:12 AM T [facility] AST 25 <33 U/L 05/19/2025 11:12 AM T [facility] ALT 14 <34 U/L 05/19/2025 11:12 AM T [facility] GFR >60 >=60 mL/min/1.7 3 sq meter 05/19/2025 11:12 AM T [facility] Comment:eGFR calculated with 2020 CKD-EPI equation. Vegetarian diet, extremely high or low muscle mass, and may affect results. Cystatin C with Glomerular Filtration Rate is a suitable alternative for these patients. ANION GAP 10 8 - 16 mmol/L 05/19/2025 11:12 AM CDT [facility] Blood Venipuncture / Unknown 05/19/2025 10:33 AM CDT 05/19/2025 10:48 AM CDT Narrative [facility] - 05/19/2025 11:12 AM CDT Samples containing indocyanine green cause interferences on Total and/or Direct Bilirubin and must not be measured. Pao Hartley MD CHEMISTRY ORDERABLES Final Resu lt Performing Organization Address [facility] Co de Phone Number [facility] CLIA# [id number] [address] [place] [address] * HEMOGLOBIN A1C (02/09/2017 10:57 AM CDT) [facility] HEMOGLOBIN A1C 5.2 4.0 - 6.0 % 02/09/2017 2:47 PM CDT [facility] Comment:Note: Effective as o f 11/20/2015 a new methodology, Turbidimetric inhibition immunoassay (TINIA),has been implemented. EST. AVG GLUCOSE, A1C 103 mg/dL 02/09/2017 2:47 PM CDT [facility] Blood Venipuncture / Unknown 02/09/2017 10:57 AM CDT 02/09/2017 10:57 AM CDT Dev Hester MD CHEMISTRY ORDERABLES Final Resul t Performing Organization Address [facility]/ZIP Co de Phone Number [facility] CLIA# [id number] [address] [place] [address] from Last 3 Months or Most Recently Relevant to Health Maintenance Insurance [facility] [id number] [employer] Advance Directives For more information, please contact: [phone] * Full Code (Latest Code Status on File) Date Activated Date Inactivated Comments 03/11/2015 4:48 PM 03/15/2015 1:31 PM * Full Code Date Activated Date Inactivated Comments 03/11/2015 7:46 AM 03/11/2015 4:48 PM * Full Code Date Activated Date Inactivated Comments 03/06/2015 5:46 PM 03/06/2015 9:15 PM * Full Code Date Activated Date Inactivated Comments 02/20/2015 10:41 AM 02/20/2015 3:02 PM Care Teams Ad Writer Relationship Specialty Start Date End Date Ryan Singh MD [address] [place] [address] PCP - General Family Practice 04/26/22
--- OUTSIDE RECORDS SUMMARY | 2025-06-10 08:48 | XMS_ITS | Encounter Summary ---
Author Organization [facility] Address 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 Left Radial, Regular WEIGHT: [id number]. BLOOD PRESSURE: 102/68. Left Arm Sitting ALLERGIES: Allergies are as listed. TOBACCO USE: Patient does not currently use tobacco. CHIEF COMPLAINT anxiety, not much of an appetite, worrying, not sleeping. would like to possibly start a medication. est/mercy HISTORY: Thinks a lot of stomach problems is related to anxiety. WHen anxious or stressed doesn't eat. Has lost 3 pounds over 1.5 months 2/2 less eating. Worries a lot. Stomach's always turning, tense, feels like she has a knot in her stomach when she's worried. Always when she's worried. no associated diarrhea or other changes in BMs. no nausea vomiting. WOrried all the time. Stressful job as social services specialist. Personal stresses. Eating poorly, not sleeping well. No anhedonia. PHYSICAL EXAMINATION: CONSTITUTIONAL: GENERAL APPEARANCE: Healthy appearing patient in no distress. RESPIRATORY: Clear to auscultation and percussion. Normal respiratory effort. CARDIOVASCULAR: CARDIAC: Regular rhythm. No murmurs, rubs, or gallops. GASTROINTESTINAL: ABDOMEN: Soft, non-tender, without masses. Bowel sounds active. LIVER/SPLEEN/KIDNEY: No hepatosplenomegaly, tenderness or nodularity. Kidneys not palpable. ASSESSMENT/PLAN: 300.00-ANXIETY h/o 30 pound weight gain on lexapro. Will try zoloft first; if weight gain, to try effexor as second line. Would not try wellbutrin at this time given dopaminergic properties could aggravate anxiety. MEDICATIONS: ZOLOFT ORAL TABLET 50 MG, 1/2 tab po qday x 1 week, one full tab thereafter daily, 30 Dispensed, 2 Fills, status: NEW PRESCRIPTION, 09/24/2007. RETURN VISIT: Patient instructed to return in 4 weeks if not improving. 09/28/07 10:37 a Electronically signed by Yuko Arciniega MD. 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
[2025-06-10 13:31] LABS: Cholesterol 157 mg/dL (0-200); HDL Direct 49 mg/dL; Triglycerides 66 mg/dL (<150)
[2025-06-10 14:05] LABS: Thyroid Stimulating Hormone Reflex 0.790 uIU/mL (0.465-4.68)
[2025-06-10 14:32] LABS: Vitamin B12 > 1000.0 pg/mL (239-931)
== END 2025-06-10 08:33 | disposition home or self-care (01) ==
LOC: ANHGOSHLAB 08:33
PROVIDERS: PCP Nurse Practitioner Family; Visit Provider Nurse Practitioner Family
DX: E55.9 Vitamin D deficiency, unspecified (principal); D68.51 Activated protein C resistance; Z00.00 Encounter for general adult medical examination without abnormal findings; Z13.220 Encounter for screening for lipoid disorders
CPT/HCPCS: 36415; 80061; 82306; 82607; 84443

== ENCOUNTER 2025-09-18 14:06 | Outpatient (CLI) | payer OTHER, SELFPAY ==
--- NOTE | ~2025-09-18 | MM_ITS ---
EXAMINATION: MM screening jhon BI w pipo HISTORY: Screening TECHNIQUE: Craniocaudal and mediolateral oblique 3-D tomosynthesis images were obtained and synthetic 2-D images were generated. CAD analysis was submitted and interpreted. COMPARISON: Comparison to multiple prior studies sequentially, with oldest reviewed study dated 05/23/2019. BREAST PARENCHYMAL COMPOSITION: Dense: The breasts are heterogeneously dense, which may obscure small masses FINDINGS: There is no evidence of suspicious mass, calcification, or architectural distortion to suggest malignancy in either breast. There has been no suspicious interval change. IMPRESSION: 1. No mammographic evidence of malignancy. 2. Recommend routine screening mammography in one year. BI-RADS Category 1: Negative Reviewed, dictated and finalized at location O. LATION EDUCATOR
== END 2025-09-18 14:07 | disposition home or self-care (01) ==
PROVIDERS: PCP Obstetrics & Gynecology; Visit Provider Obstetrics & Gynecology
DX: Z12.31 Encounter for screening mammogram for malignant neoplasm of breast (principal)
CPT/HCPCS: 77063; 77067